=== PATIENT | male | born 1995 | race Caucasian/White ===

== ENCOUNTER 2024-04-28 01:22 | Emergency (ER) | payer SELFPAY ==
[~2024-04-28] VITALS: Ht 205.7 cm; Wt 167.8 kg
[~2024-04-28 01:22] MED LIST: BACTRIM DS 8001 TA1 PO; CYCLOBENZAPRINE5 M3 PO; FLEXERIL5 MG PO; MOTRIN800 MG PO; Motrin,Rufen800 MG PO
[2024-04-28 01:39] VITALS: BP 190/93
[2024-04-28] MEDS ORDERED: SODIUM CHLORIDE 0.9% 500 ML IV ONE (01:50)
[2024-04-28] MEDS ORDERED: Ondansetron Hydrochloride 4 MG/2 ML VIAL IV ONE (01:50)
[2024-04-28 02:04] LABS: BASO # 0.1 10*3/uL (0.0-0.1); BASO % 0.6 % (0.0-1.0); EOS # 0.1 10*3/uL (0.0-0.4); EOS % 0.8 % (1.0-4.0); HEMATOCRIT 42.6 % (42.0-52.0); MEAN CELL VOLUME 86.6 fl (80.0-94.0); MEAN CORPUSCULAR HGB 30.1 pg (27.0-31.0); MEAN CORPUSCULAR HGB CONC 34.7 g/dl (33.0-37.0); MEAN PLATELET VOLUME 9.1 fl (9.6-12.3); MONO # 0.7 10*3/uL (0.1-1.0); MONO % 8.4 % (3.0-9.0); NEUT # 4.6 10*3/uL (2.3-7.9); NEUT % 55.2 % (47.0-73.0); PLATELET COUNT AUTOMATED 187 10*3/uL (130-400); RED BLOOD COUNT 4.92 10*6/uL (4.50-5.90); RED CELL DISTRI WIDTH 12.6 % (0-14.5); WHITE BLOOD COUNT 8.3 10*3/uL (4.8-10.8)
[2024-04-28 02:34] LABS: ALKALINE PHOSPHATASE 76 U/L (46-116); BUN 10 mg/dl (9-23); CHLORIDE 106 mmol/L (98-107); POTASSIUM 4.6 mmol/L (3.4-5.1); SGPT/ALT 34 U/L (5-49); TOTAL PROTEIN 7.5 gm/dL (6.0-8.0)
[2024-04-28] MEDS ORDERED: Ondansetron4 MG PO (03:00)
== END 2024-04-28 03:26 | disposition home or self-care (01) ==
LOC: ED 01:22
PROVIDERS: Internal Medicine
DX: A05.9 Bacterial foodborne intoxication, unspecified (principal); R11.2 Nausea with vomiting, unspecified; R19.7 Diarrhea, unspecified; Z79.899 Other long term (current) drug therapy

== ENCOUNTER 2025-02-10 23:21 | Emergency (ER) | payer SELFPAY ==
[~2025-02-10] VITALS: Ht 205.7 cm; Wt 172.4 kg
[~2025-02-10 23:21] MED LIST changes: +Ondansetron4 MG PO
[2025-02-10 23:35] VITALS: BP 210/105
[2025-02-10] MEDS ORDERED: VIBRAMYCIN100 MG PO (23:37)
== END 2025-02-10 23:48 | disposition home or self-care (01) ==
LOC: ED 23:21
DX: L02.212 Cutaneous abscess of back [any part, except buttock and flank] (principal); J45.909 Unspecified asthma, uncomplicated

== ENCOUNTER 2025-03-03 22:48 | Emergency (ER) | payer SELFPAY ==
[~2025-03-03] VITALS: Ht 205.7 cm; Wt 158.8 kg
[~2025-03-03 22:48] MED LIST changes: +VIBRAMYCIN100 MG PO
[2025-03-03 23:19] VITALS: BP 122/67
[2025-03-03] MEDS ORDERED: Sulfamethoxazole/Trimethopri 1 TAB TAB PO ONE (23:20)
[2025-03-03] MEDS ORDERED: SEPTDS PO (23:24)
== END 2025-03-03 23:47 | disposition home or self-care (01) ==
LOC: ED 22:48
DX: L02.212 Cutaneous abscess of back [any part, except buttock and flank] (principal)

== ENCOUNTER 2025-04-12 17:57 | Emergency (ER) | payer SELFPAY ==
[~2025-04-12] VITALS: Wt 204.1 kg
[~2025-04-12 17:57] MED LIST changes: +SEPTDS PO
[2025-04-12 18:06] VITALS: BP 178/116
[2025-04-12] MEDS ORDERED: ZITHROMAX250 MG PO (21:16)
[2025-04-12] MEDS ORDERED: MEDROL DOSEPAK4 MG PO (21:16)
[2025-04-12] MEDS ORDERED: AZITHROMYCIN 250 MG TAB PO ONE (21:20)
[2025-04-12] MEDS ORDERED: predniSONE 20 MG TAB PO ONE (21:20)
== END 2025-04-12 21:30 | disposition home or self-care (01) ==
LOC: ED 17:57
DX: J20.9 Acute bronchitis, unspecified (principal); Z20.822 Contact with and (suspected) exposure to COVID-19; Z79.899 Other long term (current) drug therapy